=== PATIENT | female | born 1990 | race Caucasian/White ===

== ENCOUNTER → 2021-09-15 | Outpatient (CLI) | payer BC ==
[~2021-09-15] MED LIST: IBUPROFEN600 MG PO; NORFLEX 100 MG100 MG PO
== END ==
LOC: RAD 10:08
DX: R06.02 Shortness of breath (principal)
CPT/HCPCS: 71046

== ENCOUNTER 2021-09-16 18:19 | Emergency (ER) | payer BC | END 2021-09-16 19:39 | disposition home or self-care (01) | LOC: ER1 18:19 | DX: R06.02 Shortness of breath (principal); R79.1 Abnormal coagulation profile; Z88.0 Allergy status to penicillin | CPT/HCPCS: 99285; Q9967 ==

== ENCOUNTER → 2021-11-28 | Outpatient (CLI) | payer OTHER | LOC: LAB 17:05 | DX: U07.1 COVID-19 (principal) | CPT/HCPCS: U0002 ==